=== PATIENT | female | born 1950 | race Asian ===

== ENCOUNTER 2019-06-24 12:37 | Emergency (ER) | payer MEDICARE, MEDICAID ==
[~2019-06-24] VITALS: Ht 165.1 cm; Wt 57.0 kg
[2019-06-24] MEDS ORDERED: LOVA10TA2 PO (12:46)
[2019-06-24] MEDS ORDERED: HYDR25TA PO (12:46)
[2019-06-24] MEDS ORDERED: AMIT25TA9 PO (12:46)
[2019-06-24] MEDS ORDERED: LOSA50TA64 PO (12:46)
[2019-06-24] MEDS ORDERED: PredniSONE 20 MG TABLET PO ONE (13:45)
[2019-06-24] MEDS ORDERED: TraMADol HCL 50 MG TABLET PO ONE (13:45)
[2019-06-24 14:13] LABS: BASOPHILS % (AUTO) 1.2 % (0.0-2.0); EOSINOPHILS % (AUTO) 4.4 % (1.0-6.0); HEMOGLOBIN 10.4 g/dL (12.0-16.0); LYMPHOCYTES # (AUTO) 0.8 K/uL (1.0-4.8); LYMPHOCYTES % (AUTO) 15.1 % (22.0-44.0); MEAN CORPUSCULAR HEMOGLOBIN 26.9 pg (26.0-34.0); MEAN CORPUSCULAR HGB CONC 32.7 G/dL (31.0-37.0); MEAN CORPUSCULAR VOLUME 82 fL (80-100); MONOCYTES # (AUTO) 0.6 K/uL (0.1-1.0); MONOCYTES % (AUTO) 10.3 % (2.0-9.0); NEUTROPHILS # (AUTO) 3.7 K/uL (1.8-7.7); PLATELET COUNT (AUTO) 435 K/uL (150-450); RED BLOOD CELL COUNT(AUTO) 3.89 MIL/uL (4.00-5.20); RED CELL DISTRIBUTION WIDTH 13.5 % (11.5-14.5)
[2019-06-24 14:21] LABS: ANION GAP 10 mmol/L (8-16); CALCIUM, TOTAL 10.1 mg/dL (8.8-10.5); CARBON DIOXIDE 30 mmol/L (22-29); CHLORIDE 101 mmol/L (98-107); CREATININE 0.73 mg/dL (0.60-1.30); GLOMERULAR FILTR. RATE CALC > 60 mL/min (>60); GLUCOSE,RANDOM 94 mg/dL (70-110); POTASSIUM 3.7 mmol/L (3.5-5.1); SODIUM SERUM 141 mmol/L (136-145); UREA NITROGEN, BLOOD 18 mg/dL (7-18)
[2019-06-24 14:28] LABS: B-TYPE NATRIURETIC PEPTIDE 55 pg/mL (0-100)
[2019-06-24 14:36] LABS: ALANINE AMINOTRANSFERASE 15 U/L (12-78); ALBUMIN 3.5 g/dL (3.4-5.0); ALKALINE PHOSPHATASE 69 U/L (46-116); ASPARTATE AMINOTRANSFERASE 20 U/L (15-37); BILIRUBIN,TOTAL 0.3 mg/dL (0.1-1.0); FREE T4 (FREE THYROXINE) 1.24 ng/dL (0.76-1.46); THYROID STIMULATING HORMONE 0.91 uIU/mL (0.36-3.74); TOTAL PROTEIN, SERUM 8.2 g/dL (6.4-8.2)
[2019-06-24 14:47] LABS: URIC ACID 5.4 mg/dL (2.6-7.2)
[2019-06-24 15:15] LABS: ERYTHROCYTE SEDIMENTATION RATE 70 MM/HR (0-20)
[2019-06-24 16:03] VITALS: BP 130/69
== END 2019-06-24 16:14 | disposition home or self-care (01) ==
LOC: EMS 12:40
DX: M13.861 Other specified arthritis, right knee (principal); M13.862 Other specified arthritis, left knee; M25.571 Pain in right ankle and joints of right foot; M25.572 Pain in left ankle and joints of left foot
CPT/HCPCS: 36415; 80053; 83880; 84439; 84443; 84550; 85025; 85651; 99283; J7512

== ENCOUNTER 2024-09-01 11:48 | Emergency (ER) | payer MEDICARE, MEDICAID ==
[~2024-09-01] VITALS: Ht 154.9 cm; Wt 55.0 kg
[~2024-09-01 11:48] MED LIST: ACET-2080 PO; ACET-66 PO; ALEN70TA65 PO; AZEL6DRO5 OU; BACL10TA PO; HYDR25TA2 PO; IBUP-45 PO; KETO-99 OU; LOSA-382 PO; LOVA10TA2 PO; MECL-226 PO; ONDA-104 PO; TOFA5TAB PO
[2024-09-01 11:49] VITALS: TEMP 97.8
[2024-09-01 13:33] LABS: BASOPHILS % (AUTO) 1.2 % (0.0-2.0); EOSINOPHILS % (AUTO) 3.7 % (1.0-6.0); HEMATOCRIT 38.5 % (36-46); HEMOGLOBIN 12.5 g/dL (12.0-16.0); LYMPHOCYTES # (AUTO) 0.8 K/uL (1.0-4.8); MEAN CORPUSCULAR HGB CONC 32.6 G/dL (31.0-37.0); MEAN CORPUSCULAR VOLUME 86 fL (80-100); MONOCYTES # (AUTO) 0.4 K/uL (0.1-1.0); MONOCYTES % (AUTO) 8.5 % (2.0-9.0); NEUTROPHILS # (AUTO) 3.4 K/uL (1.8-7.7); NEUTROPHILS % (AUTO) 70.6 % (40.0-70.0); PLATELET COUNT (AUTO) 312 K/uL (150-450); RED BLOOD CELL COUNT(AUTO) 4.47 MIL/uL (4.00-5.20); RED CELL DISTRIBUTION WIDTH 13.9 % (11.5-14.5); WHITE BLOOD COUNT (AUTO) 4.8 K/uL (4.5-11.0)
[2024-09-01 13:45] LABS: CALCIUM, TOTAL 9.5 mg/dL (8.8-10.5); CARBON DIOXIDE 30 mmol/L (22-29); CREATININE 0.68 mg/dL (0.60-1.30); GLOMERULAR FILTR. RATE CALC > 60 mL/min (>60); GLUCOSE,RANDOM 86 mg/dL (70-110); UREA NITROGEN, BLOOD 17 mg/dL (7-18)
[2024-09-01 14:02] LABS: ANION GAP 6 mmol/L (8-16); CHLORIDE 100 mmol/L (98-107); POTASSIUM 3.5 mmol/L (3.5-5.1); SODIUM SERUM 136 mmol/L (136-145)
[2024-09-01] MEDS ORDERED: IOHEXOL 300 MG/ML 100 ML VIAL ONE (14:54)
[2024-09-01] MEDS ORDERED: 0.9% SODIUM CHLORIDE 10 ML SYRINGE IVP ONE (14:54)
[2024-09-01] MEDS ORDERED: SODIUM CHLORIDE 0.9% 100 ML ONE (14:54)
[2024-09-01 16:15] VITALS: BP 132/75; PULSE 74; RESP 18; O2SAT 96
[2024-09-01] MEDS ORDERED: IBUP-1506 PO (16:26)
[2024-09-01] MEDS ORDERED: LIDO700A15 TP (16:28)
[2024-09-01] MEDS: LIDOCAINE 5% TRANSDERMAL PATCH TD ONE (16:35)
[2024-09-01] MEDS ORDERED: FLUO118.8 TP (17:05)
== END 2024-09-01 16:47 | disposition home or self-care (01) ==
LOC: EMS 11:48
DX: M62.838 Other muscle spasm (principal); M19.90 Unspecified osteoarthritis, unspecified site; E78.00 Pure hypercholesterolemia, unspecified; I10 Essential (primary) hypertension; Z90.710 Acquired absence of both cervix and uterus
CPT/HCPCS: 99285; 70498; 80048; 85025; 36415; J7050; Q9967

== ENCOUNTER 2025-03-18 09:21 | Emergency (ER) | payer MEDICARE, MEDICAID ==
[~2025-03-18] VITALS: Ht 152.4 cm; Wt 57.0 kg
[~2025-03-18 09:21] MED LIST changes: -ACET-2080 PO; -ACET-66 PO; -AZEL6DRO5 OU; -BACL10TA PO; +IBUP-1506 PO; -IBUP-45 PO; -KETO-99 OU; +LIDO700A15 TP; -MECL-226 PO; -ONDA-104 PO; -TOFA5TAB PO; +[UNRECOGNIZED DRUG - CODE] TP
[2025-03-18 09:26] VITALS: BP 141/62; PULSE 80; RESP 18; TEMP 97.9; O2SAT 99
[2025-03-18] MEDS: DiphenhydrAMINE HCL 25 MG CAPSULE PO ONE (11:07)
[2025-03-18] MEDS: PredniSONE 20 MG TABLET PO ONE (11:08)
[2025-03-18] MEDS ORDERED: DIPH25CA85 PO (11:44)
[2025-03-18] MEDS ORDERED: PRED-554 PO (11:46)
== END 2025-03-18 12:02 | disposition home or self-care (01) ==
LOC: EMS 09:22
DX: L30.9 Dermatitis, unspecified (principal); I10 Essential (primary) hypertension; E78.00 Pure hypercholesterolemia, unspecified; Z90.710 Acquired absence of both cervix and uterus; Z79.899 Other long term (current) drug therapy
CPT/HCPCS: 99283; J7512